=== PATIENT | male | born 1965 | race Caucasian/White ===

== ENCOUNTER → 2016-07-09 | Outpatient (CLI) | payer BC ==
[2016-07-09 09:53] LABS: BLOOD UREA NITROGEN 15 mg/dL (7-22); BUN/CREATININE RATIO 18.75 (6-20); CALCIUM 9.1 mg/dL (8.7-10.7); CHOL/HDL RATIO 4.23 RATIO (0-4.0); EST GLOMERULAR FILTRATION > 60 (>60 ml/min/1.73m(2)); HDL CHOLESTEROL 42 mg/dL (40-150); HEMOGLOBIN A1C 8.54 % (4.2-6.0); SERUM ALBUMIN 4.1 g/dL (3.5-4.8); SERUM CHOLESTEROL 178 mg/dL (120-200)
== END ==
LOC: LAB 09:13 → MOB LAB 09:13
PROVIDERS: ATTEND Family Medicine
DX: E11.9 Type 2 diabetes mellitus without complications (principal); E78.2 Mixed hyperlipidemia; I10 Essential (primary) hypertension; F17.220 Nicotine dependence, chewing tobacco, uncomplicated
CPT/HCPCS: 36415; 80053; 80061; 83036